=== PATIENT | female | born 1990 | race Caucasian/White ===

== ENCOUNTER 2022-06-01 17:59 | Emergency (ER) | payer SELFPAY ==
[~2022-06-01] VITALS: Ht 165.1 cm; Wt 72.7 kg
[2022-06-01 18:10] VITALS: BP 106/58
[2022-06-01] MEDS ORDERED: oxyCODONE/APAP 10/325mg tablet PO ONE (18:15)
[2022-06-01] MEDS ORDERED: cephalexin 250mg capsule PO ONE (18:40)
[2022-06-01] MEDS ORDERED: clindamycin 150mg capsule PO ONE (18:40)
[2022-06-01] MEDS ORDERED: CLIN300C54 PO (19:58)
[2022-06-01] MEDS ORDERED: CEPH500C2 PO (19:58)
[2022-06-01] MEDS ORDERED: HYDR-3965 PO ×2 (20:14→20:58)
== END 2022-06-02 06:55 | disposition home or self-care (01) ==
LOC: ER 18:00
DX: S61.214A Laceration without foreign body of right ring finger without damage to nail, initial encounter (principal); S61.212A Laceration without foreign body of right middle finger without damage to nail, initial encounter; Z88.2 Allergy status to sulfonamides; Z79.2 Long term (current) use of antibiotics; X58.XXXA Exposure to other specified factors, initial encounter; Y93.89 Activity, other specified; Y92.89 Other specified places as the place of occurrence of the external cause; Y99.8 Other external cause status
CPT/HCPCS: 12001; 73130; 99284; A6258; A6446; A6449